=== PATIENT | male | born 1930 | race Caucasian/White ===

== ENCOUNTER → 2017-06-14 | Day surgery (SDC) | payer MEDICARE, BC ==
[~2017-06-14] MED LIST: AMLO10 PO; BACITRACIN TOP OINT 15 GM TUBE ONE; BUPIVACAINE/EPINEPHRINE 0.25% PF 10 ML VIAL ONE; ENAL10 PO; LACTATED RINGER'S 1000 ML INJ 1,000 ML ONE; MINERAL OIL 10 ML VIAL ONE; ONDANSETRON HCL 4 MG/2 ML VIAL IV PUSH ONE; PROPOFOL 200 MG/20 ML AMP IV ONE; ceFAZolin 2 GM PREMIX 50 ML ONE
--- NOTE | 2017-06-14 10:59 | TN ---
cc: JOSE VEGA DATE OF SURGERY 06/14/2017 PREOPERATIVE DIAGNOSIS Bilateral pretibial basal cell carcinoma. POSTOPERATIVE DIAGNOSIS Bilateral pretibial basal cell carcinoma. PROCEDURE 1. Wide excision with split-thickness skin graft placement to the left pretibial basal cell carcinoma 8.5 cm x 5.5 cm. 2. Wide excision and split-thickness skin graft placement on the right pretibial beta cell carcinoma 6 cm x 4.5 cm. ANESTHESIA General and local anesthetic ATTENDING SURGEON Jose Vega MD COAL SAMPLE TESTER Medical Student Rafa Morales ESTIMATED BLOOD LOSS Less than 10 cc. COMPLICATIONS None FINDINGS Negative margins on intraoperative pathologic evaluation with frozen section of the lesions. INDICATIONS FOR PROCEDURE The patient is a pleasant 87-year-old male with a history of multiple cutaneous malignancies. The patient developed multiple areas of basal cell carcinoma on his lower extremities including one moderate-sized area to his left pretibial area and one small to moderate size area on his right pretibial area. The patient was referred for evaluation of the left pretibial area and possible resection due to the size, as well skin grafting. 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 The patient was consented for bilateral pretibial resection and skin grafting. The risks, benefits, and alternatives were discussed and they agreed to undergo the procedure. PROCEDURE The patient was taken to the operating room, placed in a supine position and placed under general anesthesia. The patient's bilateral lower extremities were prepped and draped in a sterile fashion. Time-out was performed. We first performed a wide excision. We measured out the areas to give us between a 1/2 cm to 1 cm margin around all grossly abnormal disease on the right pretibial and left pretibial area. We excised this using a 15 blade scalpel followed by the Bovie electrocautery to remove this from the deep fascia of the leg. This was done in the left pretibial region, followed by the right pretibial region. These were passed off and marked with stitches marking the superior margins. The right measured 6 cm x 4.5 cm, the left measured 8.5 cm x 5.5 cm. We had excellent hemostasis with the Bovie electrocautery. These were sent for intraoperative evaluation which did return negative. There was a close margin on the 12-3 o'clock area in the left pretibial region and a small additional 2-3 o'clock margin was excised with a 15 blade scalpel. This was sent for permanent processing with a stitch marking the true margin. We then turned our attention towards closure. These were obviously large wounds. They were unable to be closed primarily on the pretibial skin so we planned to do a skin graft. Due to the large area, we did need perform a split-thickness skin graft as full-thickness would be an unsuitable donor site to harvest that large area of skin. We placed Mineral oil and then used a dermatome at 0.09 to harvest skin proximally 10 cm worth on the left lateral thigh. This was done technically successful and this area was anesthetized with local anesthetic with epinephrine. We then processed the skin in a 1:2 mesh type fashion and placed it over our wounds. We sutured this in place with an interrupted and a running 4-0 chromic and excised the excess skin graft meshed skin. We had no tension on the skin graft. We had an excellent technical result. We turned our attention towards completion and dressing placement. We did place Bacitracin and Xeroform over the skin graft donor site, as well as both skin graft with cotton balls on the pretibial lesions to model the graft site over the round leg. We placed sterile gauze followed by Bronson wraps around all sites. The patient was discontinued from anesthesia and taken to the PACU in stable condition. The patient tolerated the procedure well with no apparent complications. All counts were correct and I was present and scrubbed for the entire procedure. MD LIZBETH Monaco/CHEY /10:44 AM /10:55 AM
== END | disposition home or self-care (01) ==
LOC: ESDC 06:34
PROVIDERS: ATTEND Surgery
DX: C44.719 Basal cell carcinoma of skin of left lower limb, including hip (principal); C44.712 Basal cell carcinoma of skin of right lower limb, including hip
CPT/HCPCS: 00400; 11606; 15100; 88305; 88331; J0690; J2405; J3010; J7120

== ENCOUNTER 2017-12-21 12:50 | Day surgery (SDC) | payer MEDICARE, BC ==
--- NOTE | 2017-12-13 14:43 | MH ---
cc: JANETTE OCAMPO M.D. DATE OF ADMISSION 12/14/2017 DATE OF 1930 HISTORY OF PRESENT ILLNESS The patient is an 87-year-old white male with a history of pacemaker implant, hypertension, paroxysmal ventricular tachycardia, ulcerative colitis, who is now admitted for pacemaker generator replacement. His pacemaker battery was found to be nearing end-of-life on a routine check. Clinically he has been doing fairly well without any significant cardiovascular symptoms. He does have occasional mild pedal edema. PAST MEDICAL HISTORY 1. Hypertension. 2. History of [employer] pacemaker implantation. 3. Ulcerative colitis. 4. Possible nonsustained ventricular tachycardia demonstrated on 11/05/2017 pacemaker check, treated medically. His left ventricular function by echo was shown to be normal. MEDICATIONS His cardiac medications: 1. Amlodipine 10 mg q. day. 2. Enalapril 10 mg q. day. 3. Metoprolol tartrate 50 mg b.i.d. 4. Aspirin 81 mg q. day. 5. Hydrochlorothiazide 25 mg q. day. ALLERGIES No known drug allergies. FAMILY HISTORY Noncontributory. SOCIAL HISTORY The patient has never smoked cigarettes. He drinks occasional alcohol. REVIEW OF SYSTEMS As in the history of present illness, otherwise negative or noncontributory. PHYSICAL EXAMINATION VITAL SIGNS: On exam his blood pressure is 130/60 with a pulse of 60, respirations 15. GENERAL: In general he is a well-developed, well-nourished white male in no acute distress. HEENT/NECK: Jugular venous pressure is normal. Carotid pulses are 2+ bilaterally and without bruits. CHEST: Examination of the chest reveals clear lung sigala. CARDIAC: On cardiac examination he has a regular rhythm and rate without S3, S4, or murmur. ABDOMEN: On abdominal examination he has a soft, nontender abdomen. Bowel sounds are present. There is no definite hepatosplenomegaly. EXTREMITIES: Examination of the extremities reveals no clubbing, cyanosis or edema. IMPRESSION Pacemaker battery nearing end-of-life in this 87-year-old white male with a history of pacemaker implant, hypertension, ulcerative colitis, possible nonsustained ventricular tachycardia. The patient has been recommended pacemaker generator replacement. The nature of this procedure and potential risks have been outlined. He agrees to proceed. PLAN Pacemaker generator replacement on 12/14/2017. MD PHILIPPE Oquendo /1:43 PM /11:53 AM MTDJimmie
[~2017-12-21] VITALS: Ht 185.4 cm; Wt 86.9 kg
[~2017-12-21 12:50] MED LIST changes: -BACITRACIN TOP OINT 15 GM TUBE ONE; -BUPIVACAINE/EPINEPHRINE 0.25% PF 10 ML VIAL ONE; -LACTATED RINGER'S 1000 ML INJ 1,000 ML ONE; -MINERAL OIL 10 ML VIAL ONE; -ONDANSETRON HCL 4 MG/2 ML VIAL IV PUSH ONE; -PROPOFOL 200 MG/20 ML AMP IV ONE; -ceFAZolin 2 GM PREMIX 50 ML ONE
[2017-12-21] MEDS ORDERED: IODIXANOL 320 MG/ML 50 ML VIAL (for EPS) OTHER ONE (12:51)
[2017-12-21 13:37] VITALS: BP 146/76; PULSE 60; RESP 16; TEMP 98.2; O2SAT 96
[2017-12-21] MEDS ORDERED: ASPI-516 CHEW (13:39)
[2017-12-21] MEDS ORDERED: ENAL10TA PO (13:39)
[2017-12-21] MEDS ORDERED: HYDR25TA5 PO (13:39)
[2017-12-21] MEDS ORDERED: AMLO10TA2 PO (13:39)
[2017-12-21] MEDS ORDERED: MUPIROCIN 2% OINT 1 APPLIC/GM SYR NASAL SCH (13:45)
[2017-12-21] MEDS ORDERED: VANCOMYCIN 1000 MG/NS 250 ML IV SCH ×2 (13:45)
[2017-12-21] MEDS ORDERED: CHLORHEXIDINE GLUCONATE 2 % 1 PACK (2 CLOTHS) TOPICAL PRN (13:45)
[2017-12-21] MEDS ORDERED: SODIUM CHLORID 0.9% 500 ML IV PRN (13:45)
[2017-12-21] MEDS ORDERED: LACTATED RINGER'S 1000 ML IV PRN (13:45)
[2017-12-21] MEDS ORDERED: POVIDONE IODINE 5% (ANTISEPSIS KIT) 4 APPLICATIONS EACH NARE PRN (13:45)
[2017-12-21] MEDS ORDERED: METOPROLOL TARTRATE 25 MG TAB PO PRN (13:45)
[2017-12-21] MEDS ORDERED: ceFAZolin 2 GM PREMIX 50 ML IV SCH (13:45)
[2017-12-21] MEDS ORDERED: NS 1000 ML IV SCH (14:00)
[2017-12-21 14:06] LABS: AUTOMATED NEUTROPHIL # 5.3 TH/MM3 (1.8-7.7); BASOPHIL % 0.6 % (0.0-2.0); EOSINOPHIL # 0.2 TH/MM3 (0-0.4); EOSINOPHIL % 3.2 % (0.0-4.0); HEMOGLOBIN 12.5 GM/DL (13.0-17.0); LYMPH % 17.3 % (9.0-44.0); LYMPHOCYTE # 1.3 TH/MM3 (1.0-4.8); MEAN CELL VOLUME 82.1 FL (80.0-100.0); MEAN CORPUSCULAR HEMOGLOBIN 28.5 PG (27.0-34.0); MEAN CORPUSCULAR HGB CONC 34.7 % (32.0-36.0); MEAN PLATELET VOLUME 6.8 FL (7.0-11.0); MONO % 7.8 % (0.0-8.0); MONOCYTE # 0.6 TH/MM3 (0-0.9); NEUT % 71.1 % (16.0-70.0); PLATELET COUNT 258 TH/MM3 (150-450); RED BLOOD COUNT 4.39 MIL/MM3 (4.50-5.90); RED CELL DISTRIBUTION WIDTH 15.2 % (11.6-17.2); WHITE BLOOD COUNT 7.4 TH/MM3 (4.0-11.0)
[2017-12-21 14:15] LABS: PROTHROMBIN TIME - PATIENT 10.5 SEC (9.8-11.6)
[2017-12-21] MEDS ORDERED: FAMOTIDINE 20 MG/2 ML VIAL ONE (14:21)
[2017-12-21 14:25] LABS: BICARBONATE 29.5 MEQ/L (21.0-32.0); CALCIUM 9.1 MG/DL (8.5-10.1); CREATININE 1.61 MG/DL (0.60-1.30)
[2017-12-21] MEDS ORDERED: LIDOCAINE HCL 2% 50 ML VIAL ONE (14:53)
[2017-12-21] MEDS ORDERED: VANCOMYCIN HCL 1000 MG VIAL ONE (14:53)
[2017-12-21] MEDS ORDERED: SODIUM CHLOR 0.9% 250 ML INJ 250 ML ONE (14:53)
[2017-12-21] MEDS ORDERED: ceFAZolin INJ 1,000 MG VIAL ONE (14:53)
[2017-12-21] MEDS ORDERED: MIDAZOLAM HCL 2 MG/2 ML VIAL ONE (15:08)
[2017-12-21] MEDS ORDERED: DO NOT ADM ANY ANTICOAGULANT DRUGS PRN (17:24)
--- NOTE | 2017-12-21 17:26 | CATHPROC ---
Patient Name: VERONICA KLEIN Study #: [id number] Initial MD: Buddy Ocampo Date of : 1930 Study Date: 12/21/2017 Cardiac Catheterization Report 12/21/2017 5:25:56 PM Financial #: [id number] 1 of 9 Patient Name: VERONICA KLEIN Study #: [id number] Initial MD: Buddy Ocampo Date of : 1930 Study Date: 12/21/2017 Entire Case Report Patient Information Patient Name VERONICA KLEIN Date of 1930 Age 87 years Financial # [id number] Gender M AlternateID Lab Number 6 Room Number DC10 Height (in) 71.0 Height (cm) 180.3 BSA 2.10 Weight (lbs) 196.7 Weight (kg) 89.4 Patient Address/Phone Number Home Address [facility] Home Phone Number [address] [place] [address] [facility] [id number] Study Information Study Number Admission Scheduled Start Study Start [id number] Dec 21 2017 12:50PM 12/21/2017 Dec 21 2017 2:54PM [place] Service Cardiac Pacer/ICD Admit Source Facility Department Other [facility] - Core Maker Helper Physician and Clinical Staff Initial Buddy Hair Real Estate Intern Lashaun Puente,RN Real Estate Intern Jonathan PeoplesRT(R) Other Anesthesia, SITE IDENTIFICATION SPECIALIST Recorder Nancy Gilbert,FIDEL Scrub Michaelle AcevesRT(R) TECH2 Procedures Performed Procedure Location (Site) Vessel Name Lead Insertion Venogram Subclav. Vein (Rt) Subclavian Vein 12/21/2017 5:25:56 PM Financial #: [id number] 2 of 9 Patient Name: VERONICA KLEIN Study #: [id number] Initial MD: Buddy Ocampo Date of : 1930 Study Date: 12/21/2017 Equipment Time Mail Room Description Size Mfg Part Number Used/Scraped [employer]/ EP 16:28 LEAD, INGEVITY MRI 45CM 45cm 7740-45 Used PACER [employer]/ EP 16:26 LEAD, INGEVITY MRI 52CM 52CM 7741-52 Used PACER [employer]/ EP 16:16 PACEMAKER, ACCOLADE DDDR L301 Used PACER TP-1103 15:16 [employer] SUTURE, STRIP PLUS 1/2" * Used *[id number] 15:16 MEDLINE PACER ADHESIVE, MASTISOL 2/3CC 2/3CC 0523-48 Used 15:16 MEDLINE PACER PLASCENCIA, LIMB * 2530 *[id number] Used [id number] 15:16 MEDLINE PACER PACK, PACER CUSTOM * Used *[id number] 15:16 MEDLINE PACER PEN, SKIN DUAL W/ RULER * Used *[id number] 16:04 [employer] PACER SAFE SHEATH, FR6, 13CM FR 6 CLS-1006 Used 16:04 [employer] PACER SAFE SHEATH, FR6, 13CM FR 6 CLS-1006 Used 15:21 Needle Sponge Count 1 1 Used 16:51 Needle Sponge Count 1 1 Used 15:21 Needle Sponge Count 2 22 Used 15:21 Needle Sponge Count 25 1 Used 16:11 Needle Sponge Count 3 3 Used 16:52 Needle Sponge Count 3 3 Used 16:12 Needle Sponge Count 35 Used 16:20 [employer] OMNIPAQUE, 300 MG, 50ML 50ML [id number] Used [id number] *[id number] SUTURE, 3-0 VICRYL [SH] ([id number]) SUTURE, 3-0 VICRYL [SH] ([id number]) SUTURE, 3-0 VICRYL [SH] ([id number]) SUTURE, 4-0 MONOCRYL [PS2] (Y496G) SUTURE, 4-0 MONOCRYL [PS2] (Y496G) [id number] 15:16 [employer],WARM AIR CCL * Used *[id number] [facility] PAD, ELECTROSURGICAL 15:16 * [id number] *[id number] Used SURGICAL GROUNDING ORANGE [id number] 15:16 [employer]. / * Used *[id number] 12/21/2017 5:25:56 PM Financial #: [id number] 3 of 9 Patient Name: VERONICA KLEIN Study #: [id number] Initial MD: Buddy Ocampo Date of : 1930 Study Date: 12/21/2017 Equipment Model, Serial, Lot Number and Expiration Data Description Model Number Serial Number Lot Number Expiration Date LEAD, ROSIE MRI 45CM [id number] [id number] 04-15-2019 LEAD, NASHITY MRI 52CM 7741 [id number] 10-03-2019 PACEMAKER, ACCOLADE L301 [id number] 04-20-2019 Insurance Information Insurance Payor Medicare, Private Health Insurance Third Republican Third Republican Number MEDICARE A B MCRAB Labs Hgb (g/dl) Hct (%) RBC (MIL/MM3) WBC (l/cumm) Platelets (thousands) 11.60-17.00 35.00-51.00 4.00-5.90 4.00-11.00 150.00-450.00 12.5 36 4.3 7.4 258 Glucose (mg/dl) BUN (mg/dl) Creatinine (mg/dl) BUN:Creatinine (1:x) 74.00-106.00 7.00-18.00 0.50-1.30 10.00-20.00 106 31 1.6 19.4 Na (meq/l) K (meq/l) Cl (meq/l) CO2 (mmol/L) Ca (mg/dl) 136.00-145.00 3.50-5.10 98.00-107.00 21.00-32.00 8.50-10.10 139 4.2 103 29.5 9.1 PT (sec) PTT (sec) INR (PTT:PT) 9.80-11.60 24.30-30.10 0.90-1.10 10.5 26.7 1 CPK-MB (ng/ML) 0.50-3.60 Not Drawn Medication Medication Total Dose (Bolus/Oral) Medication Total Dosage/Unit 2% XYLOCAINE 100 mL 12/21/2017 5:25:56 PM Financial #: [id number] 4 of 9 Patient Name: VERONICA KLEIN Study #: [id number] Initial MD: Buddy Ocampo Date of : 1930 Study Date: 12/21/2017 Medications (Bolus/Oral) Medication Time Given Dosage/Unit Administered By Reason 2% XYLOCAINE 12/21/2017 3:45:03 PM 50 mL Anesthesia, SITE IDENTIFICATION SPECIALIST 50 mL 2% XYLOCAINE given in lab by Anesthesia, SITE IDENTIFICATION SPECIALIST via Subcutaneous. Ordered by Buddy Ocampo. 2% XYLOCAINE 12/21/2017 4:16:59 PM 50 mL Buddy Ocampo 50 mL 2% XYLOCAINE given in lab by Buddy Ocampo in Right upper chest via Subcutaneous. Medication (Drip) Medication Time Given Dosage/Unit Concentration/Unit Diluent (ml) Solution ANCEF 12/21/2017 3:00:00 PM 2 g 2 g ANCEF given in lab by Anesthesia, SITE IDENTIFICATION SPECIALIST via Peripheral IV. Ordered by Buddy Ocampo. VANCOMYCIN DRIP 12/21/2017 3:00:00 PM 1 g 1 g VANCOMYCIN DRIP given in lab by Anesthesia, SITE IDENTIFICATION SPECIALIST via Peripheral IV. Ordered by Buddy Ocampo. Initial Case Assessment Cardiovascular HR Rhythm NIBP Chest Pain 60 PACED 128/68 0 Edema Present Skin color Skin None Normal Warm Dry Circulatory - Right Pulses Dorsalis Pedis 1 Scale (0,1,2,3,4,d) Circulatory - Left Pulses Dorsalis Pedis 1 Scale (0,1,2,3,4,d) Neurological State Oriented to time-place- Alert Moves all extremities person Respiration - General Respiration Rate SpO2 (%) (B/min) 18 97 12/21/2017 5:25:56 PM Financial #: [id number] 5 of 9 Patient Name: VERONICA KLEIN Study #: [id number] Initial MD: Buddy Ocampo Date of : 1930 Study Date: 12/21/2017 Final Case Assessment Cardiovascular HR Rhythm NIBP Chest Pain 70 crester 113/68 0 Edema Present Skin color Skin None Normal Warm Dry Circulatory - Right Pulses Radial 1 Scale (0,1,2,3,4,d) Circulatory - Left Pulses Radial 1 Scale (0,1,2,3,4,d) Circulatory - Lower Extremities Color Lower Right Color Lower Left Normal Normal Neurological State Lethargic Moves all extremities Respiration - General Respiration Rate SpO2 (%) (B/min) 16 99 Chronological Log Time Study Chronological Log 14:40:00 Patient arrived via Bed. 14:40:01 Patient Name, D.O.B, / Armband Verified By R.N. 14:40:05 Anesthesia at bedside. Assumes care of patient. (will) SEE RECORDS FOR ALL MEDS AND VITALS DURING PROCEDURE 14:56:09 Patient has been NPO for More than 6Hrs. 14:56:10 Skin Breakdown- NONE PER PATIENT 15:00:00 2 g ANCEF given in lab by Anesthesia, SITE IDENTIFICATION SPECIALIST via Peripheral IV. Ordered by Buddy Ocampo. 15:00:00 1 g VANCOMYCIN DRIP given in lab by Anesthesia, SITE IDENTIFICATION SPECIALIST via Peripheral IV. Ordered by Ligia Ocampo. 15:18:55 Patient Warmer Placed on the Table. 15:18:56 Disposable Defibrillator Pads Placed On Patient. 12/21/2017 5:25:56 PM Financial #: [id number] 6 of 9 Patient Name: VERONICA KLEIN Study #: [id number] Initial MD: Buddy Ocampo Date of : 1930 Study Date: 12/21/2017 15:18:57 Valente Prominences Protected 15:19:02 A # 20 IV was noted in the Antecubital (left). Grade = 0 15:19:11 A # 20 IV was noted in the Antecubital (right). Grade = 0 15:19:18 History and physical on the chart or being dictated. Assessment: Initial Case, HR=60 BPM, Rhythm=PACED, IASE=000/68 mmhg, Chest Pain=0, Edema=None, Color=Normal, Skin = Warm, Dry Right Pulses: Matthew Ped=1 15:19:19 Left Pulses: Matthew Ped=1 Neurological: State=Alert, Ox3, ALICEA Respiration: Resp=18 B/min, SpO2=97 % 15:20:15 Table restraints applied according to hospital policy 15:20:17 Left Upper Chest Prepped Times Two. 15:20:24 Bovie ground pad applied to: RIGHT THIGH 15:20:33 2% CHLORHEXIDINE GLUCONATE WASH AND NASAL SWIPE DONE PRIOR TO PROCEDURE. First Sponge And Instrument Count Done by Michaelle Aceves, RT(R) TECH2. 15:20:57 Hypo's: 1, Sponges: 25, Bovie/scratch: 2 Sutures: 4, Blades: 2, Instruments: 26, Syveck Patches: 0 VERIFIED BY MANDY SAN 2 HYPO AND 10 RAYTEC 15:24:24 Reference ECG taken Time Out. Correct patient, procedure, procedure equipment, site and side verified with physicia n present. Time 15:43:10 concurred by MD, individual staff and SITE IDENTIFICATION SPECIALIST. Time Out #2 - Consents verified, patient in correct position, all results are labled and displa yed, safety precautions 15:43:11 taken, antibiotics administered. Time out concurred by MD, individual staff and SITE IDENTIFICATION SPECIALIST in [facility] 15:43:15 Case Start 15:45:03 50 mL 2% XYLOCAINE given in lab by Anesthesia, SITE IDENTIFICATION SPECIALIST via Subcutaneous. Ordered by Gilda Ocampo. 15:45:52 Surgical Incision Made. 15:45:53 A pocket was created at the L Upper Chest. 15:47:23 A device was explanted. 15:52:15 ATTEMPTED TO DETACH LEAD FROM DEVICE 15:53:36 The Subclav. Vein (Rt) was manually injected with 20 cc's of contrast. OMNIPAQUE, 300 MG, 5 0ML 50ML used. 16:04:43 DR OCAMPO BROKE SCRUB TO TALK TO FAMILY. OLD LEADS DEFECTIVE NEED TO IMPLANT ON RIGHT UPPER CHEST Time Out. Correct patient, procedure, procedure equipment, site and side verified with physicia n present. Time 16:11:01 concurred by MD, individual staff and SITE IDENTIFICATION SPECIALIST. Time Out #2 - Consents verified, patient in correct position, all results are labled and displa yed, safety precautions 16:11:02 taken, antibiotics administered. Time out concurred by MD, individual staff and SITE IDENTIFICATION SPECIALIST in [facility] First Sponge And Instrument Count Done by Michaelle Aceves, RT(R) TECH2. 16:13:33 Hypo's: 3, Sponges: 35, Bovie/scratch: 2 Sutures: 7, Blades: 2, Instruments: 26, Syveck Patches: 0 VERIFIED BY DB ADDED 2 HYPO AND 10 RA YTEC 16:14:47 Right Upper Chest Prepped Times Two. 16:16:59 50 mL 2% XYLOCAINE given in lab by Buddy Ocampo in Right upper chest via Subcutaneous. 16:20:33 Vascular access was obtained in the Subclav. Vein (Rt). 16:20:53 Surgical Incision Made. 16:21:10 A pocket was created at the R Upper Chest. 16:22:33 2nd Vascular access was obtained in the Subclav. Vein (Rt). 16:22:40 A SAFE SHEATH, FR6, 13CM FR 6 was advanced into the Subclav. Vein (Rt) using the Modified S eldinger technique. 12/21/2017 5:25:56 PM Financial #: [id number] 7 of 9 Patient Name: VERONICA KLEIN Study #: [id number] Initial MD: Buddy Ocampo Date of : 1930 Study Date: 12/21/2017 16:24:41 A LEAD, INGEVITY MRI 52CM 52CM was inserted and positioned in the RV. 16:25:37 Lead placement verified under fluoroscopy 16:30:39 The RV lead impedance and threshold being tested. 16:35:14 The RV lead was sutured to the fascia. 16:36:00 A SAFE SHEATH, FR6, 13CM FR 6 was advanced into the Subclav. Vein (Rt) using the Modified S eldinger technique. 16:37:21 A LEAD, INGEVITY MRI 45CM 45cm was inserted and positioned in the RA. 16:37:45 Lead placement verified under fluoroscopy 16:39:50 The Atrial lead impedance and threshold is being tested. 16:43:17 The Atrial lead was sutured to the fascia. 16:45:23 A PACEMAKER, ACCOLADE DR DDDR was connected and placed in the pocket. Second Sponge And Instrument Count Done by Michaelle Aceves, RT(R) TECH2. 16:50:47 Hypo's: 3, Sponges: 35, Bovie/scratch: 2 Sutures: 7, Blades: 2, Instruments: ~INSTRU~, Syveck Patches: ~SYVECK PATCH~ VERIFIED BY DB 16:59:23 The right upper chest pocket was closed. 17:00:21 A device was explanted from left upper chest. 17:01:12 The RA lead was capped. 17:01:30 The RV lead was capped. 17:07:46 DOCU called. Spoke to Chris 17:08:04 Bedside Report will be given. 17:11:51 The left upper chest pocket was closed. 17:13:28 Implant Procedure was performed. 17:13:36 A PPM Implant . (Dual) and explant of old device w leads capped Final Sponge And Instrument Count Done by Michaelle Aceves, RT(R) TECH2. 17:15:33 Hypo's: 3, Sponges: 35, Bovie/scratch: 2 Sutures: 9, Blades: 2, Instruments: 26, Syveck Patches: ~SYVECK PATCH~ VERIFIED BY DB 17:16:36 Steri-strips and a sterile dressing applied to sites. 17:16:57 No case complications noted. 17:16:59 Cine recording checked. 17:17:03 Implantable Device card placed in patient's chart. 17:17:06 Defibrillator and ground pads removed. Skin intact. 17:20:20 Case End Assessment: Final Case, HR=70 BPM, Rhythm=crester, ZINA=332/68 mmhg, Chest Pain=0, Edema=None, [place] r=Normal, Skin = Warm, Dry Right Pulses: Radial=1 Left Pulses: Radial=1 17:25:11 Lower Right Extremities: Color=Normal Lower Left Extremities: Color=Normal Neurological: State=Lethargic, ALICEA Respiration: Resp=16 B/min, SpO2=99 % 17:26:42 A sling was placed on the affected right arm. 17:27:28 Defibrillator and ground pads removed. Skin intact. 17:28:11 [facility] 12/21/2017 5:25:56 PM Financial #: [id number] 8 of 9 Patient Name: VERONICA KLEIN Study #: [id number] Initial MD: Buddy Ocampo Date of : 1930 Study Date: 12/21/2017 End Study - Contrast Media Used In Study Contrast Total Opened (mL) Total Used (mL) Total Wasted (mL) Omnipaque 50 20 30 End Study - Maximum Contrast Load Max Contrast Load (mL) 279.4 End Study - Radiation Exposure Fluoro Time (minutes) 7.2 End Study - Patient Disposition Complications Transferred To Interventional Outcome No Telemetry Bed successful 12/21/2017 5:25:56 PM Financial #: [id number] 9 of 9
[2017-12-21] MEDS ORDERED: traMADol HCL 50 MG TAB PO PRN (17:30)
[2017-12-21] MEDS ORDERED: TEMAZEPAM 15 MG CAP PO PRN (17:30)
[2017-12-21 19:00] VITALS: BP 127/67; PULSE 70; RESP 16; TEMP 98; O2SAT 96
--- NOTE | 2017-12-21 19:32 | RADRPT ---
EXAM DATE/TIME: 12/21/2017 18:30 [place] COMPARISON: CHEST SINGLE AP, November 12, 2015, 23:38. INDICATIONS : Pneumothorax. MEDICAL HISTORY : Cardiovascular disease. SURGICAL HISTORY : Pacemaker. ENCOUNTER: Initial ACUITY: 1 day PAIN SCORE: 0/10 LOCATION: Bilateral chest FINDINGS: Pacer leads overlying right atrium and right ventricle. Heart size upper limits normal. Minimal basil ar scarring or atelectasis. No pneumothorax. CONCLUSION: 1. Pacer apparatus leads in right atrium and right ventricle. Minimal basilar scarring or atelectasis . Magdiel Mike MD on December 21, 2017 at 19:27 Board Certified Radiologist. This report was verified electronically.
[2017-12-21 20:46] VITALS: O2SAT 96
[2017-12-21 21:00] VITALS: PULSE 70
[2017-12-21 22:00] VITALS: PULSE 76
[2017-12-21 23:00] VITALS: BP 142/78; PULSE 70; RESP 16; TEMP 98.3; O2SAT 97
--- NOTE | 2017-12-21 23:39 | MP ---
cc: LIGIA OCAMPO DATE OF SURGERY: 12/21/2017 PROCEDURE: 1. Explantation of left-sided pacemaker generator. 2. Placement of a dual chamber permanent pacemaker via the right subclavian vein. PROCEDURE NOTE The patient was brought to the operating suite in a fasting state after having signed informed consent. The left upper chest was prepped and draped as per policy and anesthetized with 1% lidocaine. A transverse incision was made over the preexisting generator and using blunt dissection the generator was freed from the subcutaneous pocket. Inspection of the ventricular lead as it enters the header clearly shows breakdown in the insulation of this lead. In addition, upon unscrewing the atrial lead it was clearly fractured and badly damaged. At this point the device is still ventricular pacing. It was decided to place a new system on the right. The old generator and old leads were placed back into the pocket temporarily which was closed partially with 3-0 Vicryl interrupted stitches. The right chest was prepped and draped as per policy and anesthetized with 1% lidocaine. A transverse incision was made inferior to the right clavicle and using blunt dissection a subcutaneous pocket was formed down to the pectoralis fascia. After administration of 15 cc of contrast through a right arm IV central venous access was obtained twice using modified Seldinger technique via the right subclavian vein without difficulty. Over the more lateral guidewire a 6-Korean sheath was placed and through this sheath a ventricular active fixation lead was introduced and its tip positioned in the right ventricular apex where good current of injury, stimulation threshold (0.4 volts) and sensitivity (7.3 mV) were demonstrated. This lead was secured into place using 2-0 silk ties down to the pectoralis fascia. Over the remaining guidewire another 6-Korean sheath was placed and through this sheath an atrial active fixation lead was introduced and its tip positioned in the right atrial appendage where good current of injury, stimulation threshold (0.8 volts) and adequate sensitivity (0.6 mV) were demonstrated. This lead was secured into place using 2-0 silk ties down to the pectoralis fascia. The leads were then connected to the pacemaker generator which is a [employer] MRI compatible device. The lead and the generator were placed back into the subcutaneous pocket which was closed using 3-0 Vicryl interrupted stitches in two layers to close the subcutaneous tissue and then 4-0 Monocryl running stitch to close the subcuticular tissue. Overlapping Steri-Strips and a pressure dressing were applied. Next, the incision on the left chest was opened again and the pacemaker generator freed from the pocket. The atrial lead was pulled out, once again demonstrating complete fracture of this lead. This lead was capped. The ventricular lead was unscrewed. Similarly it was badly fractured near the entrance site to the header. This lead was capped. The generator was removed and the leads placed into the subcutaneous pocket which was closed using 3-0 Vicryl interrupted stitches in two layers to close the subcutaneous tissue and then 4-0 Monocryl running stitch to close the subcuticular tissue. Overlapping Steri-Strips and a dressing were applied. There were no apparent immediate complications. A portable chest x-ray is pending at time of this dictation. CONCLUSIONS: 1. Fractured old atrial and ventricular pacemaker leads in the left chest, now status post capping of these leads. 2. Explantation of old pacemaker generator from the left chest. 3. Placement of a new dual-chamber permanent pacemaker via the right subclavian vein using a [employer] Ingevity MRI compatible pacemaker generator. MD MAGALIS Oquendo/ADRIAN /5:14 PM /11:11 PM DEBBI
[2017-12-22] VITALS (9 sets, daily range): BP systolic 126–133; BP diastolic 62–70; PULSE 70–78; RESP 14–16; TEMP 97.3–98.1; O2SAT 95–98
--- NOTE | 2017-12-22 00:53 | EKG ---
Date Performed: 12/21/2017 Time Performed: 14:31:14 PTAGE: 87 years EKG: AV PACED BASELINE ARTIFACT PREVIOUS TRACING : 11/13/2015 08.12 Since the prior tracing, there has been no significan t change DOCTOR: Raheem Olson Interpretating Date/Time 12/22/2017 00:52:04
[2017-12-22] MEDS ORDERED: VANCOMYCIN 1 GM/200 ML INJ 200 ML IV SCH (05:00)
--- NOTE | 2017-12-22 08:23 | PD.CARD.PN ---
Subjective Subjective Remarks Denies pain, dizziness, dyspnea. Objective Medications Item Value Date Time Amlodipine 10 mg 12/22/17 0900 Besylate DAILY/PO (Norvasc) Aspirin 81 mg 12/22/17 0900 (Aspirin Chew) DAILY/CHEW Enalapril Maleate 10 mg 12/22/17 0900 (Vasotec) DAILY/PO Hydrochlorothiazide 25 mg 12/22/17 0900 (Hydrodiuril) DAILY/PO Current Medications Medications (Trade) Dose Ordered Sig/Phil Route Start Time Stop Time Status Last Admin Lactated Ringer's 1,000 ml @ 30 mls/hr Q24H PRN IV 12/21/17 13:45 12/24/17 13:44 Sodium Chloride 500 ml @ 30 mls/hr [id number] PRN IV 12/21/17 13:45 12/24/17 13:44 (Lopressor) 25 mg CAR SCRUBBER PRN PO 12/21/17 13:45 12/24/17 13:44 (Betadine 5% Antisepsis Kit) 1 applic CAR SCRUBBER PRN EACH NARE 12/21/17 13:45 12/24/17 13:44 (Chlorhexidine 2% Cloth) 3 pack CAR SCRUBBER PRN TOPICAL 12/21/17 13:45 12/24/17 13:44 Sodium Chloride 1,000 ml @ 30 mls/hr Q24H IV 12/21/17 14:00 Cefazolin Sodium/ Dextrose 50 ml @ 100 mls/hr CAR SCRUBBER IV 12/21/17 13:45 12/24/17 13:44 Vancomycin HCl 1000 mg/Sodium Chloride 250 ml @ 250 mls/hr CAR SCRUBBER IV 12/21/17 13:45 12/24/17 13:44 (Bactroban Nasal 2% Oint) 1 applic CAR SCRUBBER NASAL 12/21/17 13:45 12/24/17 13:44 (Ultram) 50 mg Q6HR PRN PO 12/21/17 17:30 (Norvasc) 10 mg DAILY PO 12/22/17 09:00 (Aspirin Chew) 81 mg DAILY CHEW 12/22/17 09:00 (Vasotec) 10 mg DAILY PO 12/22/17 09:00 (Hydrodiuril) 25 mg DAILY PO 12/22/17 09:00 (Restoril) 15 mg HS PRN PO 12/21/17 17:30 Miscellaneous Information ALL NURSING DEPARTME... UNSCH PRN .XX 12/21/17 17:24 12/22/17 17:23 Vital Signs / I&O Vital Signs Date Time Temp Pulse Resp B/P (MAP) Pulse Ox O2 Delivery O2 Flow Rate FiO2 12/22/17 07:00 97 Room Air 12/22/17 07:00 97.3 70 14 133/62 (85) 97 12/22/17 07:00 78 12/22/17 06:00 70 12/22/17 05:00 70 12/22/17 04:00 70 12/22/17 03:00 98.1 70 15 133/65 (87) 95 12/22/17 03:00 95 Room Air 12/22/17 03:00 70 12/22/17 02:00 70 12/22/17 01:00 70 12/22/17 00:00 70 12/21/17 23:00 97 Room Air 12/21/17 23:00 70 12/21/17 23:00 98.3 70 16 142/78 (99) 97 12/21/17 23:00 70 12/21/17 22:00 76 12/21/17 21:00 70 12/21/17 20:46 96 21 12/21/17 19:00 98.0 70 16 127/67 (87) 96 12/21/17 19:00 70 12/21/17 19:00 70 12/21/17 19:00 96 Room Air 12/21/17 13:37 98.2 60 16 146/76 (99) 96 I/O 12/21/17 12/21/17 12/21/17 12/22/17 12/22/17 12/22/17 07:00 15:00 23:00 07:00 15:00 23:00 Intake Total 920 ml Output Total 2850 ml Balance -1930 ml Intake Oral 720 ml IV Total 200 ml Output Urine Total 2850 ml # Voids 6 # Bowel Movements 0 Physical Exam Bilateral chest incision sites clean, dry, intact, no hematoma or tenderness. Laboratory Laboratory Tests Test 12/21/17 13:35 White Blood Count 7.4 TH/MM3 Red Blood Count 4.39 MIL/MM3 Hemoglobin 12.5 GM/DL Hematocrit 36.0 % Mean Corpuscular Volume 82.1 FL Mean Corpuscular Hemoglobin 28.5 PG Mean Corpuscular Hemoglobin Concent 34.7 % Red Cell Distribution Width 15.2 % Platelet Count 258 TH/MM3 Mean Platelet Volume 6.8 FL Neutrophils (%) (Auto) 71.1 % Lymphocytes (%) (Auto) 17.3 % Monocytes (%) (Auto) 7.8 % Eosinophils (%) (Auto) 3.2 % Basophils (%) (Auto) 0.6 % Neutrophils # (Auto) 5.3 TH/MM3 Lymphocytes # (Auto) 1.3 TH/MM3 Monocytes # (Auto) 0.6 TH/MM3 Eosinophils # (Auto) 0.2 TH/MM3 Basophils # (Auto) 0.0 TH/MM3 CBC Comment DIFF FINAL Differential Comment Prothrombin Time 10.5 SEC Prothromb Time International Ratio 1.0 RATIO Activated Partial Thromboplast Time 26.7 SEC Blood Urea Nitrogen 31 MG/DL Creatinine 1.61 MG/DL Random Glucose 106 MG/DL Calcium Level 9.1 MG/DL Sodium Level 139 MEQ/L Potassium Level 4.2 MEQ/L Chloride Level 103 MEQ/L Carbon Dioxide Level 29.5 MEQ/L Anion Gap 7 MEQ/L Estimat Glomerular Filtration Rate 41 ML/MIN Imaging Last 24 hours Impressions Chest X-Ray 12/21/17 1721 Signed Impressions: Service Date/Time: Thursday, December 21, 2017 18:30 - CONCLUSION: 1. Pacer apparatus leads in right atrium and right ventricle. Minimal basilar scarring or atelectasis. Magdiel Mike MD Assessment and Plan Problem List: (1) Status post placement of cardiac pacemaker ICD Codes: Z95.0 - Presence of cardiac pacemaker Status: Acute Plan: Stable overnight. Pacer site OK. Pacer re-interrogation pending. To discharge home if pacer re-interrogation shows stable pacing parameters. Same home medications plus Levaquin 500 mg qd for 7 days. Follow up Tuesday for pacer site recheck. Code Status full code Discussed Condition With patient Buddy Headley MD Dec 22, 2017 08:23
[2017-12-22] MEDS ORDERED: LEVA500T33 PO (08:25)
[2017-12-22] MEDS ORDERED: ENALAPRIL MALEATE 10 MG TAB PO SCH (09:00)
[2017-12-22] MEDS ORDERED: HYDROCHLOROTHIAZIDE 25 MG TAB PO SCH (09:00)
[2017-12-22] MEDS ORDERED: ASPIRIN 81 MG CHEW TAB CHEW SCH (09:00)
--- NOTE | 2017-12-22 23:54 | EKG ---
Date Performed: 12/21/2017 Time Performed: 17:58:44 PTAGE: 87 years EKG: A-V sequential pacemaker. Pacemaker rhythm - no further analysis Abnormal ECG PREVIOUS TRACING : 12/21/2017 14.31 Since the prior tracing, there has been no significant valdez DOCTOR: Raheem Olson Interpretating Date/Time 12/22/2017 23:52:42
== END 2017-12-22 11:15 | disposition home or self-care (01) ==
LOC: HDOC 12:50 → HDIC 12:50 → HCPC 19:23 → HDOC 12-22 11:15
PROVIDERS: ATTEND Internal Medicine Cardiovascular Disease
DX: Z45.010 Encounter for checking and testing of cardiac pacemaker pulse generator [battery] (principal); I49.5 Sick sinus syndrome; I47.2 Ventricular tachycardia; I10 Essential (primary) hypertension; K51.90 Ulcerative colitis, unspecified, without complications
CPT/HCPCS: 00530; 33208; 33233; 71045; 80048; 85025; 85610; 85730; 93005; C1785; C1898; J0690; J2250; J3010; J3370; J7050; Q9967